=== PATIENT | female | born 1970 | race Caucasian/White ===

== ENCOUNTER 2020-01-02 13:51 | Emergency (ER) | payer OTHER ==
[2020-01-04 12:22] LABS: SARS-CoV-2 MS2 Positive; SARS-CoV-2 N Gene Negative; SARS-CoV-2 S Gene Negative; SARS-CoV-2 by NAA Not Detected (NotDetected); SARS-CoV-2 orf1ab Negative
== END 2020-01-02 14:30 | disposition home or self-care (01) ==
LOC: NAV ERS 13:51
DX: B34.9 Viral infection, unspecified (principal); Z20.828 Contact with and (suspected) exposure to other viral communicable diseases; F17.210 Nicotine dependence, cigarettes, uncomplicated; I10 Essential (primary) hypertension
CPT/HCPCS: 87635; 99283; U0003